=== PATIENT | male | born 2005 | race Caucasian/White ===

== ENCOUNTER 2025-08-31 23:18 | Emergency (ER) | payer OTHER ==
[~2025-08-31] VITALS: Ht 182.9 cm; Wt 95.5 kg
[2025-09-01] MEDS: NICOTINE 21 MG/24 HR 1 EA TRANSDERMAL TD ONE (00:22)
[2025-09-01 00:24] LABS: BARBITURATES URINE NEGATIVE (NEGATIVE); COCAINE METABOLITE URINE NEGATIVE (NEGATIVE); METHADONE URINE NEGATIVE (NEGATIVE)
[2025-09-01 00:25] LABS: AMPHETAMINES LEVEL URINE NEGATIVE (NEGATIVE); BENZODIAZEPINES URINE NEGATIVE (NEGATIVE); CANNABINOIDS URINE NEGATIVE (NEGATIVE); OPIATES URINE NEGATIVE (NEGATIVE); PHENCYCLIDINE URINE NEGATIVE (NEGATIVE)
[2025-09-01 00:28] LABS: ETHYL ALCOHOL (ETHANOL) 0.278 % (0.000-0.010)
[2025-09-01 00:29] LABS: SALICYLATE LEVEL < 3.0 MG/DL (<30)
[2025-09-01 00:30] LABS: ALT/SGPT 35 U/L (7.0-40); AST/SGOT 42 U/L (<34); CALCIUM LEVEL 9.6 MG/DL (8.5-10.1); CARBON DIOXIDE LEVEL 23 MMOL/L (20-31); CHLORIDE LEVEL 108 MMOL/L (98-107); CREATININE FOR GFR 0.90 MG/DL (0.70-1.30); GLOMERULAR FILTRATION RATE > 90.0 (>60); POTASSIUM SERUM 4.3 MMOL/L (3.5-5.1); SODIUM LEVEL 144 MMOL/L (136-145)
[2025-09-01 00:33] LABS: PLATELET COUNT, AUTOMATED 339 10^3/uL (150-450)
[2025-09-01] MEDS ORDERED: HOME MED LIST COMPLETE! XX SCH (05:10)
[2025-09-01 07:31] VITALS: BP 133/71; TEMP 97.1; O2SAT 97
== END 2025-09-01 10:44 | disposition home or self-care (01) ==
LOC: M ED 09-01 03:36
DX: F10.129 Alcohol abuse with intoxication, unspecified (principal); Y90.8 Blood alcohol level of 240 mg/100 ml or more